=== PATIENT | female | born 1975 | race American Indian/Alaskan Native ===

== ENCOUNTER 2018-01-03 14:49 | Inpatient (IN) | payer MEDICAID ==
[2018-01-03 14:57] VITALS: BMI 40.4
[2018-01-03] MEDS ORDERED: Magnesium Sulfate 2 gm/50 ml 2 GM/50 ML BAG IVPB ONE (15:19)
[2018-01-03] MEDS ORDERED: Sodium Chloride 0.9% 1,000 ML IV STA (15:22)
[2018-01-03] MEDS: Albuterol-Ipratrop 3 mg / 0.5 (3 ml) UD IH SCH ×5 (15:30→18:25)
--- NOTE | 2018-01-03 15:56 | ED PDOC ---
Arrival/HPI - General Historian: Patient - General Chief Complaint: Shortness Of Breath Time Seen by Provider: 01/03/18 14:57 - History of Present Illness Narrative History of Present Illness (Text): 01/03/18 16:15 Patient is a 42-year-old female with past medical history of asthma reports one day history of dyspnea and wheezing. Episode apparently precipitated by cough and cold symptoms, which have been present since last week. Reports (-) fever; ( +) cough; (-) sputum production, (-) chest pain. Patient has previous history of emergency department visits. Patient has previous history of hospital admissions. Patient was never intubated in the past. PMD : [place] (Catie Del Castillo PA-C) Past Medical History - Infectious Disease Hx of Infectious Diseases: None - Reproductive Menopause: No - Cardiac Hx Cardiac Disorders: No - Pulmonary Hx Asthma: Yes - Endocrine/Metabolic Hx Endocrine Disorders: No - Hematological/Oncological Hx Blood Disorders: No - Gastrointestinal Hx Gastrointestinal Disorders: No - Psychiatric Hx Substance Use: No - Anesthesia Hx Anesthesia: No Family/Social History Family/Social History: No Known Family HX Smoking Status: Former Smoker Hx Alcohol Use: No Hx Substance Use: No Allergies/Home Meds Allergies/Adverse Reactions: Allergies No Known Allergies Allergy (Verified 01/03/18 15:11) Home Medications: Home Meds Medication Instructions Recorded Confirmed Albuterol HFA [Ventolin HFA 90 0.09 mg IH QID PRN 01/03/18 01/03/18 mcg/actuation (8 g)] Azithromycin [Zithromax] 250 mg PO DAILY 01/03/18 01/03/18 Budesonide/Formoterol Fumarate 2 aer IH BID 01/03/18 01/03/18 [Symbicort] methylPREDNISolone 4 mg PO 01/03/18 [Methylprednisolone] Review of Systems - Review of Systems Constitutional: absent: Fatigue, Fevers Respiratory: SOB, Cough, Wheezing Cardiovascular: absent: Chest Pain, Palpitations Gastrointestinal: absent: Abdominal Pain, Nausea, Vomiting Genitourinary Female: absent: Dysuria, Frequency Musculoskeletal: absent: Arthralgias, Back Pain, Neck Pain Skin: absent: Rash, Pruritis, Skin Lesions Neurological: absent: Headache, Dizziness Physical Exam Temperature: Afebrile Blood Pressure: Normal Pulse: Regular Respiratory Rate: Normal Appearance: Positive for: Well-Appearing, Non-Toxic, Comfortable Pain Distress: None Mental Status: Positive for: Alert and Oriented X 3 - Systems Exam Head: Present: Atraumatic, Normocephalic Pupils: Present: PERRL Extroacular Muscles: Present: EOMI Conjunctiva: Present: Normal Mouth: Present: Moist Mucous Membranes Neck: Present: Normal Range of Motion Respiratory/Chest: Present: Clear to Auscultation, Good Air Exchange, Respiratory Distress (+mild respiratory distress, patient speaking in short sentences), Wheezes (+b/l expiratory wheezing), Decreased Breath Sounds (+b/l BS mildly decreased). No: Accessory Muscle Use, Rales, Rhonchi Cardiovascular: Present: Regular Rate and Rhythm, Normal S1, S2. No: Murmurs Abdomen: No: Tenderness, Distention, Peritoneal Signs Back: Present: Normal Inspection Upper Extremity: Present: Normal Inspection. No: Cyanosis, Edema Lower Extremity: Present: Normal Inspection. No: Edema Neurological: Present: GCS=15, CN II-XII Intact, Speech Normal, Motor Func Grossly Intact, Normal Sensory Function Skin: Present: Warm, Dry, Normal Color. No: Rashes Psychiatric: Present: Alert, Oriented x 3, Normal Insight, Normal Concentration Vital Signs Temp Pulse Resp BP Pulse Ox 01/03/18 18:00 88 20 104/56 L 96 01/03/18 17:00 92 H 18 119/69 98 01/03/18 15:20 20 96 01/03/18 14:57 98.6 F 90 18 125/74 100 Medical Decision Making ED Course and Treatment: 01/03/18 15:56 Plan : - CXR - Labs - Duonebs x3 - Mg IV 01/03/18 17:35 Labs reviewed : wbc 13.1, rest of the labs wnl. CXR : mild venous congestion, no infiltrates, as read by PA BNP ordered. Lab notified. On reevaluation, patient is resting comfortably in bed with noted improvement of respiratory distress, however patient continues to complain of wheezing. She reports no h/o HTN or CHF. On exam patient still speaking in short sentences, but sounds are mildly decreased with faint bilateral expiratory wheezing and still present. Another DuoNeb 2 ordered for the patient. Diagnostic results discussed with the patient in great detail. Case discussed with hospitalist Dr. Brito, he agrees with plan for observation for the patient. Patient agrees with plan for further observation for status asthmaticus. BNP normal. (Abundio FISCHER,Catie Acuna) - Lab Interpretations Microbiology Results: Microbiology Results 01/04/18 02:20 Blood Blood Culture - Preliminary NO GROWTH AFTER 3 DAYS 01/04/18 02:15 Blood Blood Culture - Preliminary NO GROWTH AFTER 3 DAYS Lab Results: 01/04/18 06:00 01/04/18 06:00 Lab Results 01/04/18 06:00: pCO2 35, pO2 89.0, HCO3 22.7, ABG pH 7.42, ABG Total CO2 23.8, ABG O2 Saturation 98.8 H, ABG O2 Content 15.5, ABG Base Excess -1.4, ABG Hemoglobin 11.4 L, ABG Carboxyhemoglobin 1.6 H, POC ABG HHb (Measured) 1.2, ABG Methemoglobin 1.1, ABG O2 Capacity 15.7 L, Hgb O2 Saturation 96.0, FiO2 21.0 01/04/18 06:00: Sodium 137, Chloride 105, Potassium 4.7, Carbon Dioxide 23, Anion Gap 13, BUN 17, Creatinine 0.8, Est GFR ( Amer) > 60, Est GFR (Non- Af Amer) > 60, Random Glucose 164 H, Calcium 8.9, Phosphorus 3.2, Magnesium 2.4 H, Total Bilirubin 0.2, AST 16, ALT 29, Alkaline Phosphatase 59, Total Protein 7.3, Albumin 3.6, Globulin 3.7, Albumin/Globulin Ratio 1.0 L 01/04/18 06:00: WBC 24.2 H D, RBC 4.63, Hgb 11.6 L, Hct 36.1, MCV 78.0 L, MCH 25.1, MCHC 32.1, RDW 15.1 H, Plt Count 251, MPV 11.3 H 01/04/18 05:30: Hemoglobin A1c 6.3 01/04/18 02:20: Procalcitonin < 0.05 L 01/03/18 15:45: Sodium 140, Chloride 104, Potassium 3.6, Carbon Dioxide 26, Anion Gap 14, BUN 20, Creatinine 1.1, Est GFR ( Amer) > 60, Est GFR (Non- Af Amer) 54, Random Glucose 138 H, Calcium 8.5, Magnesium 2.5 H, Total Bilirubin 0.1 L, AST 28, ALT 36, Alkaline Phosphatase 66, Total Protein 7.3, Albumin 3.9, Globulin 3.5, Albumin/Globulin Ratio 1.1 01/03/18 15:45: pO2 51, VBG pH 7.40, VBG pCO2 43.0, VBG HCO3 26.6, VBG Total CO2 27.9, VBG O2 Sat (Calc) 90.3 H, VBG Base Excess 1.5, VBG Potassium 3.5 L, Sodium 137.0, Chloride 104.0, Glucose 142 H, Lactate 1.2, FiO2 21.0, Venous Blood Potassium 3.5 L 01/03/18 15:45: WBC 13.1 H, RBC 4.86, Hgb 12.1, Hct 38.1, MCV 78.4 L, MCH 24.9 L , MCHC 31.8, RDW 15.2 H, Plt Count 232, MPV 11.2 H, Gran % 64.3, Lymph % (Auto) 31.5, [place] % (Auto) 3.6, Eos % (Auto) 0.5 L, Baso % (Auto) 0.1, Gran # 8.46 H, Lymph # (Auto) 4.1 H, [place] # (Auto) 0.5, Eos # (Auto) 0.1, Baso # (Auto) 0.01 01/03/18 15:17: NT-Pro-B Natriuret Pep 31.4 - RAD Interpretation Radiology Orders: 01/03/18 15:20 CHEST PORTABLE [RAD] Stat - Medication Orders Current Medication Orders: Albuterol/Ipratropium (Duoneb 3 Mg/0.5 Mg (3 Ml) Ud) 3 ml IH [id number] PRN PRN Reason: Shortness of Breath Albuterol/Ipratropium (Duoneb 3 Mg/0.5 Mg (3 Ml) Ud) 3 ml IH [id number] [facility] Last Admin: 01/06/18 19:34 Dose: 3 ml Arformoterol Tartrate (Brovana) 15 mcg IH [id number] [facility] Last Admin: 01/06/18 19:34 Dose: 15 mcg Budesonide (Pulmicort Respules) 0.5 mg IH [id number] [facility] Last Admin: 01/06/18 19:34 Dose: 0.5 mg Enoxaparin Sodium (Lovenox) 40 mg SC DAILY [facility] PRN Reason: Protocol Last Admin: 01/06/18 10:58 Dose: 40 mg Subcutaneous Administrations Document 01/06/18 10:58 RV (Rec: 01/06/18 10:59 RV [id number]) Injection Site MAR Injection Site Left Abdomen Charges for Administration # of Subcutaneous Administrations 1 Guaifenesin (Mucinex La) 600 mg PO BID [facility] Last Admin: 01/06/18 17:16 Dose: 600 mg Methylprednisolone (Solu-Medrol) 30 mg IVP Q12 [facility] Last Admin: 01/06/18 21:51 Dose: 30 mg IVP Administration Document 01/06/18 21:51 RM (Rec: 01/06/18 21:52 RM [id number]) Charges for Administration # of IVP Administrations 1 Pantoprazole Sodium (Protonix Ec Tab) 40 mg PO 0600 [facility] Last Admin: 01/07/18 06:08 Dose: 40 mg Discontinued Medications Albuterol/Ipratropium (Duoneb 3 Mg/0.5 Mg (3 Ml) Ud) 3 ml IH Q15M [facility] Stop: 01/03/18 16:01 Last Admin: 01/03/18 16:05 Dose: 3 ml Albuterol/Ipratropium (Duoneb 3 Mg/0.5 Mg (3 Ml) Ud) 3 ml IH Q15M [facility] Stop: 01/03/18 18:31 Last Admin: 01/03/18 18:25 Dose: 3 ml Magnesium Sulfate (Magnesium Sulfate 2 Gm/50 Ml Water) 2 gm in 50 mls @ 102 mls /hr IVPB ONCE ONE Stop: 01/03/18 15:48 Last Admin: 01/03/18 15:41 Dose: 102 mls/hr eMAR Start Stop Document 01/03/18 15:41 LARRY (Rec: 01/03/18 15:41 LARRY [id number]) Intravenous Solution Start Date 01/03/18 Start Time 15:41 End Date 01/03/18 End time 16:41 Total Infusion Time 60 Sodium Chloride (Sodium Chloride 0.9%) 100 mls @ 500 mls/hr IV .Q12M STA Stop: 01/03/18 15:33 Last Admin: 01/03/18 15:30 Dose: 500 mls/hr eMAR Start Stop Document 01/03/18 15:30 SZMaia (Rec: 01/03/18 16:47 MARCMaia [id number]) Intravenous Solution Start Date 01/03/18 Start Time 15:30 End Date 01/03/18 Azithromycin (Zithromax 500mg In Ns) 500 mg in 250 mls @ 167 mls/hr IVPB DAILY [facility] PRN Reason: Protocol Azithromycin (Zithromax 500mg In Ns) 500 mg in 250 mls @ 167 mls/hr IVPB DAILY [facility] PRN Reason: Protocol Last Admin: 01/06/18 10:58 Dose: 167 mls/hr eMAR Start Stop Document 01/06/18 10:58 RV (Rec: 01/06/18 10:58 RV [id number]) Intravenous Solution Start Date 01/06/18 Start Time 10:58 End Date 01/06/18 End time 11:58 Total Infusion Time 60 Loratadine (Claritin) 10 mg PO ONCE STA Stop: 01/04/18 00:56 Methylprednisolone (Solu-Medrol) 40 mg IVP Q12 [facility] Last Admin: 01/05/18 09:40 Dose: 40 mg IVP Administration Document 01/05/18 09:40 RV (Rec: 01/05/18 09:40 RV [id number]) Charges for Administration # of IVP Administrations 1 - PA / PASTORAL WORKER / Resident Statement MD/DO has reviewed & agrees with the documentation as recorded. Disposition/Present on Arrival - Present on Arrival Any Indicators Present on Arrival: No History of DVT/PE: No History of Uncontrolled Diabetes: No Urinary Catheter: No History of Decub. Ulcer: No History Surgical Site Infection Following: None - Disposition Have Diagnosis and Disposition been Completed?: Yes Disposition Time: 18:30 Patient Plan: Observation (to remote tele) - Disposition Diagnosis: Status asthmaticus Disposition: HOSPITALIZED Patient Problems: Current Active Problems Problem Status Onset Status asthmaticus Acute Condition: FAIR
[2018-01-03 16:16] LABS: VENOUS BLOOD GAS BASE EXCESS 1.5 mmol/L (0.0-2.0); VENOUS BLOOD GAS PO2 51 mm/Hg (30-55)
[2018-01-03 16:17] LABS: BASO # 0.01 K/mm3 (0.0-2.0); BASO % 0.1 % (0.0-3.0); EOS # 0.1 (0.0-0.7); EOS % 0.5 % (1.5-5.0); GRAN # 8.46 (1.4-6.5); GRAN % 64.3 % (50.0-68.0); HEMOGLOBIN 12.1 g/dL (12.0-16.0); LYMPH # 4.1 (1.2-3.4); LYMPH % 31.5 % (22.0-35.0); MEAN CELL VOLUME 78.4 fl (80.0-105.0); MEAN CORPUSCULAR HEMOGLOBIN 24.9 pg (25.0-35.0); MEAN CORPUSCULAR HGB CONC 31.8 g/dl (31.0-37.0); MEAN PLATELET VOLUME 11.2 fl (7.0-11.0); MONO # 0.5 (0.1-0.6); MONO % 3.6 % (1.0-6.0); RBC 4.86 10^6/uL (3.5-6.1); RED CELL DISTRIBUTION WIDTH 15.2 % (11.5-14.5); WHITE BLOOD COUNT 13.1 10^3/ul (4.5-11.0)
[2018-01-03 16:27] LABS: ALB/GLOB RATIO 1.1 (1.1-1.8); ALBUMIN 3.9 g/dL (3.0-4.8); ALT/SGPT 36 U/L (7-56); AST/SGOT 28 U/L (14-36); BLOOD UREA NITROGEN 20 mg/dL (7-21); CALCIUM 8.5 mg/dL (8.4-10.5); GFR NON-AFRICAN AMERICAN 54
--- NOTE | 2018-01-03 17:11 | RAD ---
Date of service: 01/03/2018 HISTORY: wheezing COMPARISON: No prior. FINDINGS: LUNGS: Mild pulmonary vascular congestion noted PLEURA: No significant pleural effusion identified, no pneumothorax apparent. CARDIOVASCULAR: Normal. OSSEOUS STRUCTURES: No significant abnormalities. VISUALIZED UPPER ABDOMEN: Normal. OTHER FINDINGS: None. IMPRESSION: Mild pulmonary vascular congestion.
--- NOTE | 2018-01-03 18:30 | CARD ---
APPROVED REPORT Date of service: 01/03/2018 EKG Measurement Heart [id number] <Conclusion> Poor data quality, interpretation may be adversely affected Normal sinus rhythm Nonspecific T wave abnormality Abnormal ECG
[2018-01-03] MEDS ORDERED: Albuterol-Ipratrop 3 mg / 0.5 (3 ml) UD IH PRN (19:39)
--- NOTE | 2018-01-03 20:07 | CP.PCM.HP ---
<Camden Ann - Last Filed: 01/03/18 20:07> History of Present Illness - History of Present Illness History of Present Illness: Camden Ann PGY2 IM H&P Note for Dr. Flores cc: sob and cough x6 days Ms. Herrera is a 42 year old Female with a PMH of asthma and morbid obesity who presented to the ED with shortness of breath and cough x6 days when she went to ED and was prescribed an Advair inhaler that she has not been able to use. As a result, her cough has persisted and sob worsened. She denies fevers/chills, nausea/vomiting/chills, sick contacts, recent travel. She states that she does not have asthma attacks frequently and that her symptoms are mainly associated with the changes in the weather. She does have pleuritic chest pain that's mid-sternal but non-radiating. 12-pt ROS was reviewed and is otherwise unremarkable. PMH: as above PSH: non-contributory Meds: as per MAR, reviewed Allergies: none SHx: +tobacco smoke (3cigs/d for many years), denies EtOH and drug use Present on Admission - Present on Admission Any Indicators Present on Admission: No Review of Systems - Review of Systems All systems: reviewed and no additional remarkable complaints except (as per HPI ) Past Patient History - Infectious Disease Hx of Infectious Diseases: None - Past Medical History & Family History Past Medical History?: Yes - Past Social History Smoking Status: Current Some Days Smoker Alcohol: None Drugs: Denies - CARDIAC Hx Cardiac Disorders: No - PULMONARY Hx Asthma: Yes - NEUROLOGICAL Hx Neurological Disorder: No - HEENT Hx HEENT Problems: No - RENAL Hx Chronic Kidney Disease: No - ENDOCRINE/METABOLIC Hx Endocrine Disorders: No - HEMATOLOGICAL/ONCOLOGICAL Hx Blood Disorders: No - INTEGUMENTARY Hx Dermatological Problems: No - MUSCULOSKELETAL/RHEUMATOLOGICAL Hx Musculoskeletal Disorders: No - GASTROINTESTINAL Hx Gastrointestinal Disorders: No - GENITOURINARY/GYNECOLOGICAL Hx Genitourinary Disorders: No - PSYCHIATRIC Hx Substance Use: No - SURGICAL HISTORY Hx Surgeries: No - ANESTHESIA Hx Anesthesia: No Meds Allergies/Adverse Reactions: Allergies Allergy/AdvReac Type Severity Reaction Status Date / Time No Known Allergies Allergy Verified 01/03/18 15:11 Physical Exam - Constitutional Appears: Well, Non-toxic, No Acute Distress - Head Exam Head Exam: ATRAUMATIC, NORMAL INSPECTION - Eye Exam Eye Exam: EOMI, Normal appearance, PERRL - ENT Exam ENT Exam: Mucous Membranes Dry - Neck Exam Neck exam: Positive for: Normal Inspection. Negative for: Lymphadenopathy - Respiratory Exam Respiratory Exam: Decreased Breath Sounds, Wheezes (mild R>L), NORMAL BREATHING PATTERN. absent: Rales - Cardiovascular Exam Cardiovascular Exam: RRR, +S1, +S2. absent: Systolic Murmur - GI/Abdominal Exam GI & Abdominal Exam: Normal Bowel Sounds, Soft. absent: Distended, Tenderness - Extremities Exam Extremities exam: Positive for: normal inspection. Negative for: pedal edema - Back Exam Back exam: NORMAL INSPECTION - Neurological Exam Neurological exam: Alert, CN II-XII Intact, Oriented x3 - Psychiatric Exam Psychiatric exam: Normal Affect, Normal Mood - Skin Skin Exam: Warm Results - Vital Signs Recent Vital Signs: Last Vital Signs Temp 98.6 F 01/03/18 14:57 Pulse 88 01/03/18 18:00 Resp 20 01/03/18 18:00 BP 104/56 L 01/03/18 18:00 Pulse Ox 96 01/03/18 18:00 - Labs Result Diagrams: 01/03/18 15:45 01/03/18 15:45 Assessment & Plan - Assessment and Plan (Free Text) Assessment: 42 year old Female with a PMH of asthma and morbid obesity who presented to the ED with shortness of breath and cough x6 days, and is found to be wheezing with no signs of infection. Patient has not been using her inhaler due to difficulty operating the inhaler. Plan: 1. Asthma - Duonebs ESTER And PRN - Pulmicort Q12 - Brovana Q12 - Solu-medrol 40q12 - Zithromax started empirically - O2 PRN - monitor O2 sat - patient is stable and in no acute respiratory distress, can monitor on med- surg - CXR showed mild vascular congestion 2. morbid obesity - medicare nurse referral 3. PPX/DIET - PTX for GI ppx - Lovenox for DVT ppx - HHD Case was reviewed and discussed with attending, Dr. Mark Ann PGY2 <Paul Flores - Last Filed: 01/04/18 01:02> Results - Vital Signs Recent Vital Signs: Last Vital Signs Temp 98.4 F 01/03/18 21:30 Pulse 89 01/03/18 21:30 Resp 19 01/03/18 21:30 BP 124/66 01/03/18 21:30 Pulse Ox 98 01/03/18 21:30 - Labs Result Diagrams: 01/03/18 15:45 01/03/18 15:45
[2018-01-03] MEDS: MethylPREDNISolone 40 mg Vial IVP SCH (21:52)
[2018-01-03] MEDS ORDERED: Fluticasone-Salmeterol 250-50mcg Diskus IH SCH (22:00)
[2018-01-04] MEDS: Arformoterol 15 mcg/2 ml Inh Sol IH SCH ×3 (01:19→20:32)
[2018-01-04] MEDS: Budesonide 0.5 mg/2 ml Inhal Susp UD IH SCH ×3 (01:19→20:32)
[2018-01-04] MEDS: Albuterol-Ipratrop 3 mg / 0.5 (3 ml) UD IH SCH ×5 (01:19→20:32)
[2018-01-04] MEDS: Pantoprazole 40 mg EC Tab PO SCH (05:19)
[2018-01-04 06:23] LABS: ARTERIAL BLOOD GAS HCO3 22.7 mmol/L (21-28); ARTERIAL BLOOD GAS HEMOGLOBIN 11.4 g/dL (11.7-17.4); ARTERIAL BLOOD GAS O2 CAPACITY 15.7 mL/dl (16-24); ARTERIAL BLOOD GAS O2 CONTENT 15.5 ML/dl (15-23); ARTERIAL BLOOD GAS O2 SAT 98.8 % (95-98); ARTERIAL BLOOD GAS PCO2 35 mm/Hg (35-45); ARTERIAL BLOOD GAS PH 7.42 (7.35-7.45); ARTERIAL BLOOD GAS TCO2 23.8 mmol.L (22-28)
[2018-01-04 06:35] LABS: HEMOGLOBIN 11.6 g/dL (12.0-16.0); MEAN CORPUSCULAR HEMOGLOBIN 25.1 pg (25.0-35.0); MEAN CORPUSCULAR HGB CONC 32.1 g/dl (31.0-37.0); MEAN PLATELET VOLUME 11.3 fl (7.0-11.0); RBC 4.63 10^6/uL (3.5-6.1); RED CELL DISTRIBUTION WIDTH 15.1 % (11.5-14.5); WHITE BLOOD COUNT 24.2 10^3/ul (4.5-11.0)
[2018-01-04 07:09] LABS: ALBUMIN 3.6 g/dL (3.0-4.8); ALT/SGPT 29 U/L (7-56); AST/SGOT 16 U/L (14-36); BLOOD UREA NITROGEN 17 mg/dL (7-21); CALCIUM 8.9 mg/dL (8.4-10.5); GFR NON-AFRICAN AMERICAN > 60
[2018-01-04] MEDS: Azithromycin 500MG/NS 250ml 500 MG/250 ML BAG IVPB SCH (09:23)
[2018-01-04] MEDS: MethylPREDNISolone 40 mg Vial IVP SCH ×2 (09:24→21:22)
[2018-01-04] MEDS: Enoxaparin 40 mg Syringe SC SCH (09:24)
[2018-01-04] MEDS ORDERED: Azithromycin 500MG/NS 250ml 500 MG/250 ML BAG IVPB SCH (10:00)
--- NOTE | 2018-01-04 18:06 | CP.PCM.PN ---
<Barbara Arndt - Last Filed: 01/04/18 18:02> Subjective - Date & Time of Evaluation Date of Evaluation: 01/04/18 Time of Evaluation: 09:20 - Subjective Subjective: PGY-1 Barbara Arndt D.O. Medicine progress not for Dr. Clarke's service: Patient was seen and examined this morning. No over night events reported. Patient states her SOB is improving. She is comfortable on room air. She is still complaining of a dry cough with associated chest pain. She admits to a 10 pack year history of smoking, but she has not had a cigarette since her respiratory symptoms started one week ago. She intends to quit. Patient does not see a specialist for her asthma. Patient's daughter has asthma as well. 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 She has never been hospitalized or intubated for an asthma exacerbation. Objective - Vital Signs/Intake and Output Vital Signs (last 24 hours): Temp Pulse Resp BP Pulse Ox 98.1 F 63 20 102/52 L 99 01/04/18 08:12 01/04/18 08:12 01/04/18 08:12 01/04/18 08:12 01/04/18 08:12 - Medications Medications: Current Medications Albuterol/Ipratropium (Duoneb 3 Mg/0.5 Mg (3 Ml) Ud) 3 ml IH [id number] PRN PRN Reason: Shortness of Breath Albuterol/Ipratropium (Duoneb 3 Mg/0.5 Mg (3 Ml) Ud) 3 ml IH [id number] [facility] Last Admin: 01/04/18 13:38 Dose: 3 ml Arformoterol Tartrate (Brovana) 15 mcg IH [id number] [facility] Last Admin: 01/04/18 07:36 Dose: 15 mcg Budesonide (Pulmicort Respules) 0.5 mg IH [id number] [facility] Last Admin: 01/04/18 07:36 Dose: 0.5 mg Enoxaparin Sodium (Lovenox) 40 mg SC DAILY [facility] PRN Reason: Protocol Last Admin: 01/04/18 09:24 Dose: 40 mg Azithromycin (Zithromax 500mg In Ns) 500 mg in 250 mls @ 167 mls/hr IVPB DAILY [facility] PRN Reason: Protocol Last Admin: 01/04/18 09:23 Dose: 167 mls/hr Methylprednisolone (Solu-Medrol) 40 mg IVP Q12 [facility] Last Admin: 01/04/18 09:24 Dose: 40 mg Pantoprazole Sodium (Protonix Ec Tab) 40 mg PO 0600 [facility] Last Admin: 01/04/18 05:19 Dose: 40 mg - Constitutional Appears: No Acute Distress - Head Exam Head Exam: ATRAUMATIC, NORMAL INSPECTION, NORMOCEPHALIC - Eye Exam Eye Exam: EOMI, Normal appearance, PERRL - ENT Exam ENT Exam: Mucous Membranes Moist, Normal Exam - Neck Exam Neck Exam: Normal Inspection - Respiratory Exam Respiratory Exam: Decreased Breath Sounds, Wheezes (L>R), NORMAL BREATHING PATTERN - Cardiovascular Exam Cardiovascular Exam: REGULAR RHYTHM, +S1, +S2 - GI/Abdominal Exam GI & Abdominal Exam: Soft, Normal Bowel Sounds - Rectal Exam Rectal Exam: Deferred - Extremities Exam Extremities Exam: Normal Capillary Refill, Normal Inspection. absent: Pedal Edema, Tenderness - Back Exam Back Exam: NORMAL INSPECTION - Neurological Exam Neurological Exam: Alert, Awake, CN II-XII Intact, Oriented x3. absent: Motor Sensory Deficit Neuro motor strength exam: Left Upper Extremity: 5, Right Upper Extremity: 5, Left Lower Extremity: 5, Right Lower Extremity: 5 - Psychiatric Exam Psychiatric exam: Normal Affect, Normal Mood - Skin Skin Exam: Dry, Intact, Normal Color, Warm Assessment and Plan - Assessment and Plan (Free Text) Assessment: Patient is a 42 yo AA female with a history of asthma who presented with dry cough, SOB, and wheezing x1 week. She went to [facility] ED and was discharged with abx, steroids, and inhaler. Despite this, her symptoms continue to worsen. According to patient's history, she has mild intermittent asthma. Plan: Asthma exacerbation, improving- mild intermittent - CXR: Mild pulmonary vascular congestion. - F/u echo - F/u PFT - Procal <0.05 - Supplemental O2 PRN - Duoneb q6hrs ESTER, q4hrs PRN SOB - Azithromycin 500 mg IV daily - Brovana q12hrs - Pulmicort BID - Solu-medrol 40 mg IV q12hrs- taper - Pulmonology consulted (Dr. Lee) Tobacco use disorder - Encouraged cessation IVF: not indicated GI ppx: Protonix 40 mg PO daily VTE ppx: Lovenox 40 mg SC daily, SCDs Diet: heart healthy Code status: full code Case discussed with attending, Dr. Clarke. <Florencia Clarke - Last Filed: 01/05/18 15:47> Objective - Vital Signs/Intake and Output Vital Signs (last 24 hours): Temp Pulse Resp BP Pulse Ox 98.0 F 69 20 106/61 95 01/05/18 06:00 01/05/18 06:00 01/05/18 06:00 01/05/18 06:00 01/05/18 06:00 Intake and Output: 01/05/18 01/05/18 06:59 18:59 Intake Total 100 Balance 100 - Medications Medications: Current Medications Albuterol/Ipratropium (Duoneb 3 Mg/0.5 Mg (3 Ml) Ud) 3 ml IH [id number] PRN PRN Reason: Shortness of Breath Albuterol/Ipratropium (Duoneb 3 Mg/0.5 Mg (3 Ml) Ud) 3 ml IH [id number] [facility] Last Admin: 01/05/18 13:29 Dose: 3 ml Arformoterol Tartrate (Brovana) 15 mcg IH [id number] [facility] Last Admin: 01/05/18 08:07 Dose: 15 mcg Budesonide (Pulmicort Respules) 0.5 mg IH [id number] [facility] Last Admin: 01/05/18 08:07 Dose: 0.5 mg Enoxaparin Sodium (Lovenox) 40 mg SC DAILY [facility] PRN Reason: Protocol Last Admin: 01/05/18 09:40 Dose: 40 mg Azithromycin (Zithromax 500mg In Ns) 500 mg in 250 mls @ 167 mls/hr IVPB DAILY [facility] PRN Reason: Protocol Last Admin: 01/05/18 09:39 Dose: 167 mls/hr Methylprednisolone (Solu-Medrol) 40 mg IVP Q12 [facility] Last Admin: 01/05/18 09:40 Dose: 40 mg Pantoprazole Sodium (Protonix Ec Tab) 40 mg PO 0600 [facility] Last Admin: 01/05/18 05:15 Dose: 40 mg - Labs Labs: 01/05/18 05:40 01/05/18 05:40 Attending/Attestation - Attestation I have personally seen and examined this patient.: Yes I have fully participated in the care of the patient.: Yes I have reviewed all pertinent clinical information, including history, physical exam and plan: Yes Notes (Text): Patient seen and examined by me at 11:15AM on 01/04/18 with resident. Case including HPI, physical exam, and assessment and plan discussed with resident. Agree with above with following additions/corrections. Patient is a 42-year-old female past medical history significant for asthma and morbid obesity that presented to the emergency room with shortness of breath and cough. Patient states she is feeling a little better today. States that shortness of breath is a little better. Cough is a little better. Patient denies any chest pain. No headaches or dizziness. No fevers or chills. No nausea, vomiting, or abdominal pain. No dysuria. Physical exam: General: Awake and alert sitting up in bed in no acute distress HEENT: Normocephalic, atraumatic. Extraocular muscles intact. Pupils equal reactive. No scleral icterus. Oropharynx is pink and moist. No pharyngeal erythema or exudate appreciated. Neck is supple. Cardiovascular: Normal rhythm. Normal S1, S2. No murmurs, rubs, or gallops appreciated Pulmonary: Normal respiratory effort. No rhonchi, rales or wheezing appreciated. Gastrointestinal: Soft, nondistended. Nontender. Positive bowel sounds all 4 quadrants, no guarding. Musculoskeletal: Moves all extremities, no calf tenderness. No edema appreciated. Central nervous system: AAO x 3. CN 2-12 grossly intact. Dermatologic: Skin warm and dry. Assessment and plan: Patient is a 42-year-old female past medical history significant for asthma, tobacco abuse, and morbid obesity that presented to the emergency room with shortness of breath and cough. 1. Asthma/COPD exacerbation. Possible bronchitis. Continue nebulizer treatments. Continue Brovana and Pulmicort. Continue Solu-Medrol. Continue O2 via nasal cannula as needed. Patient counseled on tobacco cessation. Continue with Zithromax. Pulmonary consulted, follow-up recommendations. 2. Leukocytosis. Likely reactive to steroids. She was on steroids prior to coming into the hospital as well. Continue to monitor. 3. Mild vascular congestion noted on chest x-ray. 2-D echo pending. 4. Morbid obesity. Patient counseled on diet and exercise. 5. Tobacco abuse. Patient counseled on cessation. Case was discussed in detail with the patient regarding current diagnosis and treatment plan.
[2018-01-05] MEDS: Albuterol-Ipratrop 3 mg / 0.5 (3 ml) UD IH SCH ×4 (02:05→20:25)
[2018-01-05] MEDS: Pantoprazole 40 mg EC Tab PO SCH (05:15)
[2018-01-05 06:28] LABS: BASO # 0.01 K/mm3 (0.0-2.0); GRAN # 23.61 (1.4-6.5); GRAN % 87.7 % (50.0-68.0); HEMOGLOBIN 11.8 g/dL (12.0-16.0); LYMPH # 2.8 (1.2-3.4); LYMPH % 10.4 % (22.0-35.0); MEAN CELL VOLUME 78.2 fl (80.0-105.0); MEAN CORPUSCULAR HEMOGLOBIN 24.9 pg (25.0-35.0); MEAN CORPUSCULAR HGB CONC 31.9 g/dl (31.0-37.0); MEAN PLATELET VOLUME 11.4 fl (7.0-11.0); MONO # 0.5 (0.1-0.6); MONO % 1.9 % (1.0-6.0); RBC 4.73 10^6/uL (3.5-6.1); RED CELL DISTRIBUTION WIDTH 15.4 % (11.5-14.5)
[2018-01-05 06:35] LABS: WHITE BLOOD COUNT 26.9 10^3/ul (4.5-11.0)
[2018-01-05 06:56] LABS: ALB/GLOB RATIO 1.1 (1.1-1.8); ALBUMIN 3.9 g/dL (3.0-4.8); ALT/SGPT 29 U/L (7-56); AST/SGOT 23 U/L (14-36); BLOOD UREA NITROGEN 16 mg/dL (7-21); CALCIUM 8.7 mg/dL (8.4-10.5); GFR NON-AFRICAN AMERICAN > 60
[2018-01-05] MEDS: Budesonide 0.5 mg/2 ml Inhal Susp UD IH SCH ×2 (08:07→20:25)
[2018-01-05] MEDS: Arformoterol 15 mcg/2 ml Inh Sol IH SCH ×2 (08:07→20:25)
[2018-01-05] MEDS: Azithromycin 500MG/NS 250ml 500 MG/250 ML BAG IVPB SCH (09:39)
[2018-01-05] MEDS: MethylPREDNISolone 40 mg Vial IVP SCH ×2 (09:40→22:04)
[2018-01-05] MEDS: Enoxaparin 40 mg Syringe SC SCH (09:40)
--- NOTE | 2018-01-05 13:06 | CARD ---
APPROVED REPORT Date of service: 01/04/2018 EXAM: Two-dimensional and M-mode echocardiogram with Doppler and color Doppler. INDICATION Dyspnea 2D DIMENSIONS Left Atrium (2D)3.8 (1.6-4.0cm)IVSd1.2 (0.7-1.1cm) LVDd4.9 (3.9-5.9cm)PWd1.2 (0.7-1.1cm) LVDs3.1 (2.5-4.0cm)FS (%) 36.5 % LVEF (%)66.2 (>50%) M-Mode DIMENSIONS Aortic Root2.90 (2.2-3.7cm)Aortic Cusp Exc.1.80 (1.5-2.0cm) Aortic Valve AoV Peak Mtgwsxub543.0cm/Rick Peak GR.10mmHg Mitral Valve MV E Wjjacbyj68.4cm/sMV A Kekmvysq58.5cm/sE/A ratio1.1 TDI Lateral E' Peak V10.10cm/sMedial E' Peak V7.80cm/sE/Lateral E'8.2 E/Medial E'10.6 Pulmonary Valve PV Peak Bngrbhtk93.5cm/sPV Peak Grad.3mmHg Tricuspid Valve TR Peak Vghwhner113vt/sRAP [id number] Peak Gr.24mmHg [id number] LEFT VENTRICLE The left ventricle is normal size. There is borderline to mild concentric left ventricular hypertrophy. LV Systolic Function Normal. LV Ej.Fr: 66%. RIGHT VENTRICLE The right ventricle is normal size. The right ventricular systolic function is normal. ATRIA The left atrium size is normal. The right atrium size is normal. AORTIC VALVE The aortic valve is normal in structure. MITRAL VALVE The mitral valve is normal in structure. TRICUSPID VALVE The tricuspid valve is normal in structure. There is trace tricuspid regurgitation. RVSP 34mm Hg. PERICARDIAL EFFUSION There is no pericardial effusion. <Conclusion> The left ventricle is normal size. There is borderline to mild concentric left ventricular hypertrophy. LV Systolic Function Normal. LV Ej.Fr: 66%. The right ventricle is normal size. The right ventricular systolic function is normal. The left atrium size is normal. The right atrium size is normal. The aortic valve is normal in structure. The mitral valve is normal in structure. The tricuspid valve is normal in structure. There is trace tricuspid regurgitation. RVSP 34mm Hg. There is no pericardial effusion.
--- NOTE | 2018-01-05 13:37 | CP.PCM.PN ---
<Barbara Arndt - Last Filed: 01/05/18 21:09> Subjective - Date & Time of Evaluation Date of Evaluation: 01/05/18 Time of Evaluation: 07:35 - Subjective Subjective: PGY-1 Barbara Arndt D.O. Medicine progress not for Dr. Clarke's service: Patient was seen and examined this morning. No over night events reported. Patient states her SOB and cough improving. She is comfortable on room air. She is complaining of generalized weakness. She would like help learning how to use her inhaler. She denies chest plain. She is eating and sleeping well. Objective - Vital Signs/Intake and Output Vital Signs (last 24 hours): Temp Pulse Resp BP Pulse Ox 98.0 F 69 20 106/61 95 01/05/18 06:00 01/05/18 06:00 01/05/18 06:00 01/05/18 06:00 01/05/18 06:00 Intake and Output: 01/05/18 01/05/18 06:59 18:59 Intake Total 100 Balance 100 - Medications Medications: Current Medications Albuterol/Ipratropium (Duoneb 3 Mg/0.5 Mg (3 Ml) Ud) 3 ml IH [id number] PRN PRN Reason: Shortness of Breath Albuterol/Ipratropium (Duoneb 3 Mg/0.5 Mg (3 Ml) Ud) 3 ml IH [id number] [facility] Last Admin: 01/05/18 13:29 Dose: 3 ml Arformoterol Tartrate (Brovana) 15 mcg IH [id number] [facility] Last Admin: 01/05/18 08:07 Dose: 15 mcg Budesonide (Pulmicort Respules) 0.5 mg IH [id number] [facility] Last Admin: 01/05/18 08:07 Dose: 0.5 mg Enoxaparin Sodium (Lovenox) 40 mg SC DAILY [facility] PRN Reason: Protocol Last Admin: 01/05/18 09:40 Dose: 40 mg Azithromycin (Zithromax 500mg In Ns) 500 mg in 250 mls @ 167 mls/hr IVPB DAILY [facility] PRN Reason: Protocol Last Admin: 01/05/18 09:39 Dose: 167 mls/hr Methylprednisolone (Solu-Medrol) 40 mg IVP Q12 [facility] Last Admin: 01/05/18 09:40 Dose: 40 mg Pantoprazole Sodium (Protonix Ec Tab) 40 mg PO 0600 [facility] Last Admin: 01/05/18 05:15 Dose: 40 mg - Labs Labs: 01/05/18 05:40 01/05/18 05:40 - Constitutional Appears: Non-toxic, No Acute Distress - Head Exam Head Exam: ATRAUMATIC, NORMAL INSPECTION, NORMOCEPHALIC - Eye Exam Eye Exam: EOMI, Normal appearance, PERRL - ENT Exam ENT Exam: Mucous Membranes Moist, Normal Exam - Neck Exam Neck Exam: Normal Inspection - Respiratory Exam Respiratory Exam: Decreased Breath Sounds, NORMAL BREATHING PATTERN. absent: Wheezes - Cardiovascular Exam Cardiovascular Exam: REGULAR RHYTHM, +S1, +S2 - GI/Abdominal Exam GI & Abdominal Exam: Soft. absent: Tenderness Additional comments: obese - Rectal Exam Rectal Exam: Deferred - Extremities Exam Extremities Exam: Normal Inspection, Pedal Edema (1+ b/l) - Back Exam Back Exam: NORMAL INSPECTION. absent: tenderness - Neurological Exam Neurological Exam: Alert, Awake, CN II-XII Intact, Oriented x3 Neuro motor strength exam: Left Upper Extremity: 5, Right Upper Extremity: 5, Left Lower Extremity: 5, Right Lower Extremity: 5 - Psychiatric Exam Psychiatric exam: Normal Affect, Normal Mood - Skin Skin Exam: Dry, Intact, Normal Color, Warm Assessment and Plan - Assessment and Plan (Free Text) Assessment: Patient is a 42 yo AA female with a history of asthma who presented with dry cough, SOB, and wheezing x1 week. She went to [facility] and was discharged with abx, steroids, and inhaler. Despite this, her symptoms continue to worsen. According to patient's history, she has mild intermittent asthma. Plan: Asthma exacerbation, improving- mild intermittent, showed patient how to utilizes inhalers properly - CXR: Mild pulmonary vascular congestion. - Echo: EF 66%, mild LVH, trace TR - F/u PFT - Procal <0.05 - Supplemental O2 PRN - Duoneb q6hrs ESTER, q4hrs PRN SOB - Azithromycin 500 mg IV daily - Brovana q12hrs - Pulmicort BID - Solu-medrol 30 mg IV q12hrs- taper - Pulmonology consulted (Dr. Lee) Leukocytosis, worsening (13.1->26.9)- suspect due to steroids, no evidence of PNA or other infection - Afebrile - Monitor CBC Tobacco use disorder - Encouraged cessation IVF: not indicated GI ppx: Protonix 40 mg PO daily VTE ppx: Lovenox 40 mg SC daily, SCDs Diet: heart healthy Code status: full code Case discussed with attending, Dr. Clarke. <Florencia Clarke - Last Filed: 01/07/18 08:14> Objective - Vital Signs/Intake and Output Vital Signs (last 24 hours): Temp Pulse Resp BP Pulse Ox 98.1 F 64 19 116/65 98 01/07/18 08:11 01/07/18 08:11 01/07/18 08:11 01/07/18 08:11 01/07/18 08:11 Intake and Output: 01/07/18 01/07/18 06:59 18:59 Intake Total 480 Balance 480 - Medications Medications: Current Medications Albuterol/Ipratropium (Duoneb 3 Mg/0.5 Mg (3 Ml) Ud) 3 ml IH [id number] PRN PRN Reason: Shortness of Breath Albuterol/Ipratropium (Duoneb 3 Mg/0.5 Mg (3 Ml) Ud) 3 ml IH [id number] [facility] Last Admin: 01/07/18 07:53 Dose: 3 ml Arformoterol Tartrate (Brovana) 15 mcg IH [id number] [facility] Last Admin: 01/07/18 07:53 Dose: 15 mcg Budesonide (Pulmicort Respules) 0.5 mg IH [id number] [facility] Last Admin: 01/07/18 07:54 Dose: 0.5 mg Enoxaparin Sodium (Lovenox) 40 mg SC DAILY [facility] PRN Reason: Protocol Last Admin: 01/06/18 10:58 Dose: 40 mg Guaifenesin (Mucinex La) 600 mg PO BID [facility] Last Admin: 01/06/18 17:16 Dose: 600 mg Methylprednisolone (Solu-Medrol) 30 mg IVP Q12 [facility] Last Admin: 01/06/18 21:51 Dose: 30 mg Pantoprazole Sodium (Protonix Ec Tab) 40 mg PO 0600 [facility] Last Admin: 01/07/18 06:08 Dose: 40 mg - Labs Labs: 01/07/18 06:20 01/07/18 06:20 Attending/Attestation - Attestation I have personally seen and examined this patient.: Yes I have fully participated in the care of the patient.: Yes I have reviewed all pertinent clinical information, including history, physical exam and plan: Yes Notes (Text): Patient seen and examined by me at 11:50AM on 01/05/18 with resident. Case including HPI, physical exam, and assessment and plan discussed with resident. Agree with above with following additions/corrections. Patient is a 42-year-old female past medical history significant for asthma and morbid obesity that presented to the emergency room with shortness of breath and cough. Patient states she is feeling better. Still with some shortness of breath and wheezing. Still wtih dry cough. Patient denies any chest pain. No headaches or dizziness. No fevers or chills. No nausea, vomiting, or abdominal pain. No dysuria. Physical exam: General: Awake and alert sitting up in bed in no acute distress HEENT: Normocephalic, atraumatic. Extraocular muscles intact. Pupils equal reactive. No scleral icterus. Oropharynx is pink and moist. No pharyngeal erythema or exudate appreciated. Neck is supple. Cardiovascular: Normal rhythm. Normal S1, S2. No murmurs, rubs, or gallops appreciated Pulmonary: Normal respiratory effort. Decreased breath sounds throughout. Mild expiratory wheezing throughout. No rhonchi or rales appreciated. Gastrointestinal: Soft, nondistended. Nontender. Positive bowel sounds all 4 quadrants, no guarding. Musculoskeletal: Moves all extremities, no calf tenderness. No edema appreciated. Central nervous system: AAO x 3. CN 2-12 grossly intact. Dermatologic: Skin warm and dry. Assessment and plan: Patient is a 42-year-old female past medical history significant for asthma, tobacco abuse, and morbid obesity that presented to the emergency room with shortness of breath and cough. 1. Asthma/COPD exacerbation. Possible bronchitis. Improving. Continue nebulizer treatments. Continue Brovana and Pulmicort. Continue Solu-Medrol, taper steroids. Continue O2 via nasal cannula as needed. Patient counseled on tobacco cessation. Continue with Zithromax. Pulmonary consulted, recommendations appreciated. 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 2. Leukocytosis. Likely reactive to steroids. She was on steroids prior to coming into the hospital as well. Continue to monitor. 3. Mild vascular congestion noted on chest x-ray. 2-D echo per chemical lab supervisor shows left ventricle is normal size, borderline to mild concentric left ventricular hypertrophy, left ventricular systolic function normal, ejection fraction 66%, right ventricular systolic function is normal (please see offical read for full details). 4. Morbid obesity. Patient counseled on diet and exercise. 5. Tobacco abuse. Patient counseled on cessation. Case was discussed in detail with the patient regarding current diagnosis and treatment plan.
--- NOTE | 2018-01-05 22:52 | CON ---
DATE: 01/05/2018 HISTORY OF PRESENT ILLNESS: This is a 42-year-old lady with history of asthma for about 10 years, which, however, appears to be mild intermittent and who has never been in the hospital for asthma or intubated for asthma in the past. She is not on any maintenance inhalers and use albuterol inhalers p.r.n. most of the time. She reports that up until November, she did not really have to use any relieve inhalers as she did not have any wheezing, coughing or shortness of breath. She reports that her symptoms and signs are slightly flare during the springtime, but not enough to send her to the hospital. About two days ago, the patient noticed increased wheezing, runny nose, cough nonproductive and went to her doctor who prescribed her oral steroids and Advair. Her symptoms, however, progressed despite using those and she was referred to hospital for further management and monitoring. No nausea, no vomiting, no diarrhea, no constipation. No chest pain. PAST MEDICAL HISTORY: Asthma, morbid obesity. ALLERGIES: NKDA. FAMILY HISTORY: Noncontributory. SOCIAL HISTORY: No alcohol or illicit drug abuse. No tobacco smoking. REVIEW OF SYSTEMS: Review of 12-organ systems other than mentioned in history present illness is negative. MEDICATIONS AT HOME: Albuterol, Symbicort, azithromycin, Solu-Medrol 40 mg p.o. daily. PHYSICAL EXAMINATION VITAL SIGNS: Temperature 98, heart rate 69, blood pressure 106/61, respiratory rate 20, oxygen saturation 95% on two liters nasal cannula. HEENT: Head and neck atraumatic. LUNGS: Clear to auscultation bilaterally. HEART: Regular rate and rhythm. S1 and S2 normal. ABDOMEN: Soft, nontender and nondistended. MUSCULOSKELETAL: No C/C/E. NEUROLOGIC: The patient moves all extremities spontaneously. SKIN: Moist. PSYCHIATRIC: The patient is alert, awake and oriented x3. LABORATORY DATA: WBC 26.9, hemoglobin 11.8, platelet count 280. Sodium 137, potassium 4.5, chloride 102, carbon dioxide 25, BUN 16, creatinine 0.8, glucose 172. ProBNP 46.3, procalcitonin less than 0.05. AST 23, ALT 29, total bilirubin 0.2. ABG showed 7.42/35/89 on 21% FiO2 (room air). Lactic acid level 1.2. MEDICATIONS: DuoNeb p.r.n. and every 6 hrs on standing basis, Brovana, Pulmicort, Lovenox 40 mg subcutaneously daily, Solu-Medrol 40 mg IV every 12, Protonix, azithromycin. Chest x-ray, no active pulmonary disease. Echocardiogram did not reveal any significant left ventricular or right ventricular abnormalities preliminarily; however, official report is pending. ASSESSMENT AND PLAN: This is a 42-year-old lady who presented with asthma exacerbation. I agree with bronchodilators, inhaled corticosteroids/long acting beta agonist, steroid taper. Using macrolides antibiotics a little bit controversial in the management of asthma exacerbation. Azithromycin against placebo in exacerbations of asthma(PRINCESS) study published in 2016 did not find any benefit in using macrolides in patients with asthma exacerbation. Prior to that study, some data suggested that macrolides improved some outcomes in AAE. The difference between those two studies was that in PRINCESS trial, only 5% of patients were found to be having chlamydia or mycoplasma infection as opposed to tarlithromycin study in which 60% of patients did have chlamydia or mycoplasma infection. So, the question about using the azithromycin in asthma exacerbation remains open to some degree. I would continue target euvolemia, euglycemia, normothermia and oxygen saturation more than 90%. The patient is subjectively doing better. She would definitely need to follow up with outpatient pediatric hospitalist within seven days of discharge to adjust her anti-asthma medication/inhalers. Daniel Lee MD MTDDeonna
[2018-01-06] MEDS: Albuterol-Ipratrop 3 mg / 0.5 (3 ml) UD IH SCH ×3 (01:28→19:34)
[2018-01-06] MEDS: Pantoprazole 40 mg EC Tab PO SCH (06:15)
[2018-01-06 06:33] LABS: BASO # 0.01 K/mm3 (0.0-2.0); GRAN # 19.11 (1.4-6.5); GRAN % 83.2 % (50.0-68.0); HEMOGLOBIN 11.7 g/dL (12.0-16.0); LYMPH # 3.3 (1.2-3.4); LYMPH % 14.3 % (22.0-35.0); MEAN CELL VOLUME 78.3 fl (80.0-105.0); MEAN CORPUSCULAR HEMOGLOBIN 24.8 pg (25.0-35.0); MEAN CORPUSCULAR HGB CONC 31.7 g/dl (31.0-37.0); MEAN PLATELET VOLUME 10.7 fl (7.0-11.0); MONO # 0.6 (0.1-0.6); MONO % 2.5 % (1.0-6.0); RBC 4.71 10^6/uL (3.5-6.1); RED CELL DISTRIBUTION WIDTH 15.6 % (11.5-14.5)
[2018-01-06 06:53] LABS: ALB/GLOB RATIO 1.1 (1.1-1.8); ALBUMIN 3.9 g/dL (3.0-4.8); ALT/SGPT 27 U/L (7-56); AST/SGOT 21 U/L (14-36); BLOOD UREA NITROGEN 17 mg/dL (7-21); GFR NON-AFRICAN AMERICAN > 60
[2018-01-06] MEDS: Arformoterol 15 mcg/2 ml Inh Sol IH SCH ×2 (07:55→19:34)
[2018-01-06] MEDS: Budesonide 0.5 mg/2 ml Inhal Susp UD IH SCH ×2 (07:55→19:34)
[2018-01-06] MEDS: Enoxaparin 40 mg Syringe SC SCH (10:58)
[2018-01-06] MEDS: Azithromycin 500MG/NS 250ml 500 MG/250 ML BAG IVPB SCH (10:58)
[2018-01-06] MEDS: MethylPREDNISolone 40 mg Vial IVP SCH ×2 (10:59→21:51)
[2018-01-06] MEDS: guaiFENesin 600 mg ER Tab PO SCH ×2 (12:00→17:16)
--- NOTE | 2018-01-06 15:00 | CP.PCM.PN ---
<Barbara Arndt - Last Filed: 01/06/18 17:56> Subjective - Date & Time of Evaluation Date of Evaluation: 01/06/18 Time of Evaluation: 09:20 - Subjective Subjective: PGY-1 Barbara Arndt D.O. Medicine progress not for Dr. Clarke's service: Patient was seen and examined this morning. No over night events reported. She states her SOB and cough improve following nebulizer treatments; however, her symptoms worsen and wheezing recurs a few hours later. She denies fevers and chills. She is not requiring supplemental O2. She now feels comfortable using an inhaler. Objective - Vital Signs/Intake and Output Vital Signs (last 24 hours): Temp Pulse Resp BP Pulse Ox 98.2 F 75 20 111/66 98 01/06/18 08:18 01/06/18 08:18 01/06/18 08:18 01/06/18 08:18 01/06/18 08:18 Intake and Output: 01/06/18 01/06/18 06:59 18:59 Intake Total 180 Balance 180 - Medications Medications: Current Medications Albuterol/Ipratropium (Duoneb 3 Mg/0.5 Mg (3 Ml) Ud) 3 ml IH [id number] PRN PRN Reason: Shortness of Breath Albuterol/Ipratropium (Duoneb 3 Mg/0.5 Mg (3 Ml) Ud) 3 ml IH [id number] [facility] Last Admin: 01/06/18 11:23 Dose: 3 ml Arformoterol Tartrate (Brovana) 15 mcg IH [id number] [facility] Last Admin: 01/06/18 07:55 Dose: 15 mcg Budesonide (Pulmicort Respules) 0.5 mg IH [id number] [facility] Last Admin: 01/06/18 07:55 Dose: 0.5 mg Enoxaparin Sodium (Lovenox) 40 mg SC DAILY [facility] PRN Reason: Protocol Last Admin: 01/06/18 10:58 Dose: 40 mg Guaifenesin (Mucinex La) 600 mg PO BID [facility] Last Admin: 01/06/18 12:00 Dose: 600 mg Azithromycin (Zithromax 500mg In Ns) 500 mg in 250 mls @ 167 mls/hr IVPB DAILY [facility] PRN Reason: Protocol Last Admin: 01/06/18 10:58 Dose: 167 mls/hr Methylprednisolone (Solu-Medrol) 30 mg IVP Q12 [facility] Last Admin: 01/06/18 10:59 Dose: 30 mg Pantoprazole Sodium (Protonix Ec Tab) 40 mg PO 0600 [facility] Last Admin: 01/06/18 06:15 Dose: 40 mg - Labs Labs: 01/06/18 06:00 01/06/18 06:00 - Constitutional Appears: Non-toxic, No Acute Distress - Head Exam Head Exam: ATRAUMATIC, NORMAL INSPECTION, NORMOCEPHALIC - Eye Exam Eye Exam: EOMI, Normal appearance, PERRL - ENT Exam ENT Exam: Mucous Membranes Moist, Normal Exam - Neck Exam Neck Exam: Normal Inspection - Respiratory Exam Respiratory Exam: Wheezes, NORMAL BREATHING PATTERN - Cardiovascular Exam Cardiovascular Exam: REGULAR RHYTHM, +S1, +S2 - GI/Abdominal Exam GI & Abdominal Exam: Soft, Normal Bowel Sounds - Rectal Exam Rectal Exam: Deferred - Extremities Exam Extremities Exam: Pedal Edema (b/l 2+) - Back Exam Back Exam: NORMAL INSPECTION - Neurological Exam Neurological Exam: Alert, Awake, CN II-XII Intact, Oriented x3 Neuro motor strength exam: Left Upper Extremity: 5, Right Upper Extremity: 5, Left Lower Extremity: 5, Right Lower Extremity: 5 - Psychiatric Exam Psychiatric exam: Normal Affect, Normal Mood - Skin Skin Exam: Dry, Intact, Normal Color, Warm Assessment and Plan - Assessment and Plan (Free Text) Assessment: Patient is a 42 yo AA female with a history of asthma who presented with dry cough, SOB, and wheezing x1 week. She went to [facility] and was discharged with abx, steroids, and inhaler. Despite this, her symptoms continue to worsen. According to patient's history, she has mild intermittent asthma. Plan: Asthma exacerbation, improving- mild intermittent, showed patient how to utilizes inhalers properly - CXR: Mild pulmonary vascular congestion. - Echo: EF 66%, mild LVH, trace TR - F/u PFT - Procal <0.05 - Blood Cx: no growth >48hrs - Supplemental O2 PRN - Duoneb q6hrs ESTER, q4hrs PRN SOB - Brovana q12hrs - Pulmicort BID - Mucinex 600 mg PO BID - Solu-medrol 30 mg IV q12hrs- taper - PT - Pulmonology consulted (Dr. Lee)- Azithromycin not indicated, f/u with 7 days upon discharge Leukocytosis, stable (23)- suspect due to steroids, no evidence of PNA or other infection - Afebrile - Monitor CBC Tobacco use disorder - Encouraged cessation IVF: not indicated GI ppx: Protonix 40 mg PO daily VTE ppx: Lovenox 40 mg SC daily, SCDs Diet: heart healthy Code status: full code Case discussed with attending, Dr. Clarke. <Florencia Clarke R - Last Filed: 01/07/18 17:58> Objective - Vital Signs/Intake and Output Vital Signs (last 24 hours): Temp Pulse Resp BP Pulse Ox 98.1 F 64 19 116/65 98 01/07/18 08:11 01/07/18 08:11 01/07/18 08:11 01/07/18 08:11 01/07/18 08:11 Intake and Output: 01/07/18 01/07/18 06:59 18:59 Intake Total 480 Balance 480 - Labs Labs: 01/07/18 06:20 01/07/18 06:20 Attending/Attestation - Attestation I have personally seen and examined this patient.: Yes I have fully participated in the care of the patient.: Yes I have reviewed all pertinent clinical information, including history, physical exam and plan: Yes Notes (Text): Patient seen and examined by me at 11:45AM on 01/06/18 with resident. Case including HPI, physical exam, and assessment and plan discussed with resident. Agree with above with following additions/corrections. Patient is a 42-year-old female past medical history significant for asthma and morbid obesity that presented to the emergency room with shortness of breath and cough. Patient states she is feeling ok. States she is feeling short of breath again today and coughing. Patient denies any chest pain. No headaches or dizziness. No fevers or chills. No nausea, vomiting, or abdominal pain. No dysuria. No diarrhea or constipation. Physical exam: General: Awake and alert sitting up in bed in no acute distress HEENT: Normocephalic, atraumatic. Extraocular muscles intact. Pupils equal reactive. No scleral icterus. Oropharynx is pink and moist. No pharyngeal erythema or exudate appreciated. Neck is supple. Cardiovascular: Normal rhythm. Normal S1, S2. No murmurs, rubs, or gallops appreciated Pulmonary: Normal respiratory effort. Decreased breath sounds throughout. Mild expiratory wheezing throughout. No rhonchi or rales appreciated. Gastrointestinal: Soft, nondistended. Nontender. Positive bowel sounds all 4 quadrants, no guarding. Musculoskeletal: Moves all extremities, no calf tenderness. No edema appreciated. Central nervous system: AAO x 3. CN 2-12 grossly intact. Dermatologic: Skin warm and dry. Assessment and plan: Patient is a 42-year-old female past medical history significant for asthma, tobacco abuse, and morbid obesity that presented to the emergency room with shortness of breath and cough. 1. Asthma/COPD exacerbation. Possible bronchitis. Improving. Continue nebulizer treatments. Continue Brovana and Pulmicort. Continue Solu-Medrol, taper steroids. Will start on Mucinex. Continue O2 via nasal cannula as needed. Patient counseled on tobacco cessation. Continue with Zithromax. Pulmonary consulted, recommendations appreciated. 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 2. Leukocytosis. Likely reactive to steroids. She was on steroids prior to coming into the hospital as well. Continue to monitor. 3. Mild vascular congestion noted on chest x-ray. 2-D echo per watch crystal cutter shows left ventricle is normal size, borderline to mild concentric left ventricular hypertrophy, left ventricular systolic function normal, ejection fraction 66%, right ventricular systolic function is normal (please see official read for full details). 4. Morbid obesity. Patient counseled on diet and exercise. 5. Tobacco abuse. Patient counseled on cessation. Case was discussed in detail with the patient regarding current diagnosis and treatment plan.
--- NOTE | 2018-01-06 16:43 | CP.PCM.PN ---
Subjective - Date & Time of Evaluation Date of Evaluation: 01/06/18 Time of Evaluation: 16:40 - Subjective Subjective: Patient seen and examined at bedside, reports to be feeling better, reports SOB is significantly improved. Objective - Vital Signs/Intake and Output Vital Signs (last 24 hours): Temp Pulse Resp BP Pulse Ox 98.2 F 75 20 111/66 98 01/06/18 08:18 01/06/18 08:18 01/06/18 08:18 01/06/18 08:18 01/06/18 08:18 Intake and Output: 01/06/18 01/06/18 06:59 18:59 Intake Total 180 Balance 180 - Medications Medications: Current Medications Albuterol/Ipratropium (Duoneb 3 Mg/0.5 Mg (3 Ml) Ud) 3 ml IH [id number] PRN PRN Reason: Shortness of Breath Albuterol/Ipratropium (Duoneb 3 Mg/0.5 Mg (3 Ml) Ud) 3 ml IH [id number] [facility] Last Admin: 01/06/18 11:23 Dose: 3 ml Arformoterol Tartrate (Brovana) 15 mcg IH [id number] [facility] Last Admin: 01/06/18 07:55 Dose: 15 mcg Budesonide (Pulmicort Respules) 0.5 mg IH [id number] [facility] Last Admin: 01/06/18 07:55 Dose: 0.5 mg Enoxaparin Sodium (Lovenox) 40 mg SC DAILY [facility] PRN Reason: Protocol Last Admin: 01/06/18 10:58 Dose: 40 mg Guaifenesin (Mucinex La) 600 mg PO BID [facility] Last Admin: 01/06/18 12:00 Dose: 600 mg Azithromycin (Zithromax 500mg In Ns) 500 mg in 250 mls @ 167 mls/hr IVPB DAILY [facility] PRN Reason: Protocol Last Admin: 01/06/18 10:58 Dose: 167 mls/hr Methylprednisolone (Solu-Medrol) 30 mg IVP Q12 [facility] Last Admin: 01/06/18 10:59 Dose: 30 mg Pantoprazole Sodium (Protonix Ec Tab) 40 mg PO 0600 [facility] Last Admin: 01/06/18 06:15 Dose: 40 mg - Labs Labs: 01/06/18 06:00 01/06/18 06:00 - Constitutional Appears: Non-toxic, No Acute Distress - Head Exam Head Exam: NORMAL INSPECTION - Eye Exam Eye Exam: Normal appearance - ENT Exam ENT Exam: Mucous Membranes Moist - Neck Exam Neck Exam: Full ROM - Respiratory Exam Respiratory Exam: Clear to Ausculation Bilateral, NORMAL BREATHING PATTERN - Cardiovascular Exam Cardiovascular Exam: REGULAR RHYTHM, +S1, +S2 - GI/Abdominal Exam GI & Abdominal Exam: Soft, Normal Bowel Sounds - Extremities Exam Extremities Exam: Full ROM - Neurological Exam Neurological Exam: Alert, Awake, Oriented x3 - Psychiatric Exam Psychiatric exam: Normal Affect Assessment and Plan - Assessment and Plan (Free Text) Assessment: 42yo female with SOB, Asthma exacerbation SOB Asthma Exacerbation - currently afebrile, BP stable, comfortable in NAD, on room air, on exam CTABL , good air movement, no wheezing - CXR reviewed, no focal consolidation - Cont with Pulmicort, Brovana, Duonebs PRN - Cont with Solumedrol 30mg Q12hr IV for now - Would DC abx, CXR no focal consolidation, Procal negative - will need to follow up with outpatient campaign specialist within 7 days of discharge
[2018-01-06 17:20] VITALS: TEMP 98.1
--- NOTE | 2018-01-07 06:04 | CP.PCM.DIS ---
Provider - Provider Date of Admission: 01/04/18 11:23 Attending physician: Florencia Clarke DO Primary care physician: Mishel Gale MD Consults: pulmonology (Rosa) Time Spent in preparation of Discharge (in minutes): 45 Diagnosis - Discharge Diagnosis (1) Asthma exacerbation Status: Acute Priority: High Hospital Course - Lab Results Lab Results: Micro Results 01/04/18 22:00 Urine,Clean Catch Urine Culture - Final No Growth (<1,000 CFU/ML) Most Recent Lab Values WBC 23.0 10^3/ul (4.5-11.0) H 01/06/18 06:00 RBC 4.71 10^6/uL (3.5-6.1) 01/06/18 06:00 Hgb 11.7 g/dL (12.0-16.0) L 01/06/18 06:00 Hct 36.9 % (36.0-48.0) 01/06/18 06:00 MCV 78.3 fl (80.0-105.0) L 01/06/18 06:00 MCH 24.8 pg (25.0-35.0) L 01/06/18 06:00 MCHC 31.7 g/dl (31.0-37.0) 01/06/18 06:00 RDW 15.6 % (11.5-14.5) H 01/06/18 06:00 Plt Count 263 10^3/uL (120.0-450.0) 01/06/18 06:00 MPV 10.7 fl (7.0-11.0) 01/06/18 06:00 Gran % 83.2 % (50.0-68.0) H 01/06/18 06:00 Lymph % (Auto) 14.3 % (22.0-35.0) L 01/06/18 06:00 Fisher % (Auto) 2.5 % (1.0-6.0) 01/06/18 06:00 Eos % (Auto) 0.0 % (1.5-5.0) L 01/06/18 06:00 Baso % (Auto) 0.0 % (0.0-3.0) 01/06/18 06:00 Gran # 19.11 (1.4-6.5) H 01/06/18 06:00 Lymph # (Auto) 3.3 (1.2-3.4) 01/06/18 06:00 Fisher # (Auto) 0.6 (0.1-0.6) 01/06/18 06:00 Eos # (Auto) 0.0 (0.0-0.7) 01/06/18 06:00 Baso # (Auto) 0.01 K/mm3 (0.0-2.0) 01/06/18 06:00 pCO2 35 mm/Hg (35-45) 01/04/18 06:00 pO2 89.0 mm/Hg (80-100) 01/04/18 06:00 HCO3 22.7 mmol/L (21-28) 01/04/18 06:00 ABG pH 7.42 (7.35-7.45) 01/04/18 06:00 ABG Total CO2 23.8 mmol.L (22-28) 01/04/18 06:00 ABG O2 Saturation 98.8 % (95-98) H 01/04/18 06:00 ABG O2 Content 15.5 ML/dl (15-23) 01/04/18 06:00 ABG Base Excess -1.4 mmol/L (-2.0-3.0) 01/04/18 06:00 ABG Hemoglobin 11.4 g/dL (11.7-17.4) L 01/04/18 06:00 ABG Carboxyhemoglobin 1.6 % (0.5-1.5) H 01/04/18 06:00 POC ABG HHb (Measured) 1.2 % (0-5) 01/04/18 06:00 ABG Methemoglobin 1.1 % (0.0-3.0) 01/04/18 06:00 ABG O2 Capacity 15.7 mL/dl (16-24) L 01/04/18 06:00 VBG pH 7.40 (7.32-7.43) 01/03/18 15:45 VBG pCO2 43.0 (40-60) 01/03/18 15:45 VBG HCO3 26.6 mmol/l (21-28) 01/03/18 15:45 VBG Total CO2 27.9 mmol.L (22-28) 01/03/18 15:45 VBG O2 Sat (Calc) 90.3 % (40-65) H 01/03/18 15:45 VBG Base Excess 1.5 mmol/L (0.0-2.0) 01/03/18 15:45 VBG Potassium 3.5 mmol/L (3.6-5.2) L 01/03/18 15:45 Hgb O2 Saturation 96.0 % (95.0-98.0) 01/04/18 06:00 Sodium 137.0 mmol/L (132-148) 01/03/18 15:45 Chloride 104.0 mmol/L (98-107) 01/03/18 15:45 Glucose 142 mg/dl (65-105) H 01/03/18 15:45 Lactate 1.2 mmol/L (0.7-2.1) 01/03/18 15:45 FiO2 21.0 % 01/04/18 06:00 Sodium 136 mmol/L (132-148) 01/06/18 06:00 Potassium 4.4 mmol/L (3.6-5.0) 01/06/18 06:00 Chloride 101 mmol/L (98-107) 01/06/18 06:00 Carbon Dioxide 25 mmol/L (21-33) 01/06/18 06:00 Anion Gap 14 (10-20) 01/06/18 06:00 BUN 17 mg/dL (7-21) 01/06/18 06:00 Creatinine 0.9 mg/dl (0.7-1.2) 01/06/18 06:00 Est GFR ( Amer) > 60 01/06/18 06:00 Est GFR (Non-Af Amer) > 60 01/06/18 06:00 Random Glucose 151 mg/dL (70-110) H 01/06/18 06:00 Hemoglobin A1c 6.3 % (4.2-6.5) 01/04/18 05:30 Calcium 9.0 mg/dL (8.4-10.5) 01/06/18 06:00 Phosphorus 3.6 mg/dL (2.5-4.5) 01/06/18 06:00 Magnesium 2.1 mg/dL (1.7-2.2) 01/06/18 06:00 Total Bilirubin 0.2 mg/dL (0.2-1.3) 01/06/18 06:00 AST 21 U/L (14-36) 01/06/18 06:00 ALT 27 U/L (7-56) 01/06/18 06:00 Alkaline Phosphatase 65 U/L (38-126) 01/06/18 06:00 NT-Pro-B Natriuret Pep 46.3 pg/mL (0-450) 01/05/18 07:00 Total Protein 7.5 g/dL (5.8-8.3) 01/06/18 06:00 Albumin 3.9 g/dL (3.0-4.8) 01/06/18 06:00 Globulin 3.6 gm/dL 01/06/18 06:00 Albumin/Globulin Ratio 1.1 (1.1-1.8) 01/06/18 06:00 Procalcitonin < 0.05 NG/ML (0.19-0.49) L 01/04/18 02:20 Venous Blood Potassium 3.5 mmol/L (3.6-5.2) L 01/03/18 15:45 - Hospital Course Hospital Course: Upon Admission: 01/03/18 16:15 Patient is a 42-year-old female with past medical history of asthma reports one - day history of dyspnea and wheezing. Episode apparently precipitated by cough and cold symptoms, which have been present since last week. Reports (-) fever; (+) cough; (-) sputum production, (-) chest pain. Patient has previous history of emergency department visits. Patient has previous history of hospital admissions. Patient was never intubated in the past. Chest X-ray: Mild Pulmonary vascular congestion Hospital Stay: 01/04- 01/0701/04/18 Echocardiogram: Left ventricle is normal in size, there is borderline to mile concentric left ventricular hypertrophy. LV systolic function normal. Normal LV ejection fraction: 66%. The right ventricle is normal in size. The right ventricular systolic function is normal, the right and left atrium size is normal. The aortic and mitral valve are normal in structure. Tricuspid valve is normal in structure. There is trace tricuspid regurgitation. RVSP 34 mm Hg. No pericardial effusion. Progress 01/04: Patient states her SOB is improving. She is comfortable on room air. She is still complaining of a dry cough with associated chest pain. 01/05/18 Pulmonology Consult, Dr. Lee: Patient subjectively doing better, will definitely need follow up with outpatient maintainer central office within seven days of discharge to adjust her anti-asthma medications. Progress 01/05: Patient states her SOB and cough improving. She is comfortable on room air. She is complaining of generalized weakness. She would like help learning how to use her inhaler. She denies chest plain. She is eating and sleeping well. 01/07/18- Upon Discharge F/U Outpatient with Pulmonology for Asthma Management Discharge Exam - Head Exam Head Exam: ATRAUMATIC, NORMAL INSPECTION, NORMOCEPHALIC - Eye Exam Eye Exam: EOMI, Normal appearance, PERRL - ENT Exam ENT Exam: Mucous Membranes Moist, Normal Exam - Respiratory Exam Respiratory Exam: Clear to PA & Lateral, NORMAL BREATHING PATTERN - Cardiovascular Exam Cardiovascular Exam: REGULAR RHYTHM, +S1, +S2 - GI/Abdominal Exam GI & Abdominal Exam: Normal Bowel Sounds, Soft, Unremarkable - Rectal Exam Rectal Exam: Deferred - Extremities Exam Extremities exam: full ROM, normal inspection, pedal pulses present - Back Exam Back exam: NORMAL INSPECTION - Neurological Exam Neurological exam: Alert, CN II-XII Intact, Normal Gait, Oriented x3 - Psychiatric Exam Psychiatric exam: Normal Affect, Normal Mood - Skin Skin Exam: Dry, Intact, Normal Color, Warm Discharge Plan - Discharge Medications Prescriptions: Guaifenesin [Mucinex] 600 mg PO BID #10 tab.er.12h - Follow Up Plan Condition: IMPROVED Disposition: HOME/ ROUTINE Patient education suggested?: Yes Instructions: Asthma, Adult (DC) Additional Instructions: You are being discharged from [facility] after being admitted for an asthma exacerbation. Please follow-up with a maintainer central office within 7 days of discharge, you may call your insurance company or primary care doctor for referral. Also, please follow-up with your primary care physician within 3-5 days. You are being discharged with the following prescriptions: Prednisone- 30 mg twice daily for 2 days, then 20 mg twice daily for 2 days, then 10 mg twice daily for 2 days Mucinex 600 mg- take one by mouth twice daily Continue your home Symbicort inhaler as prescribed. If symptoms recur, please present to the nearest emergency department. Referrals: Mishel Gale MD [Primary Care Provider] -
[2018-01-07] MEDS: Pantoprazole 40 mg EC Tab PO SCH (06:08)
[2018-01-07 07:03] LABS: BASO # 0.01 K/mm3 (0.0-2.0); GRAN # 19.88 (1.4-6.5); GRAN % 80.8 % (50.0-68.0); HEMOGLOBIN 12.1 g/dL (12.0-16.0); LYMPH # 3.9 (1.2-3.4); LYMPH % 15.7 % (22.0-35.0); MEAN CELL VOLUME 78.8 fl (80.0-105.0); MEAN CORPUSCULAR HEMOGLOBIN 24.9 pg (25.0-35.0); MEAN CORPUSCULAR HGB CONC 31.7 g/dl (31.0-37.0); MEAN PLATELET VOLUME 11.3 fl (7.0-11.0); MONO # 0.9 (0.1-0.6); MONO % 3.5 % (1.0-6.0); RBC 4.85 10^6/uL (3.5-6.1); RED CELL DISTRIBUTION WIDTH 15.5 % (11.5-14.5); WHITE BLOOD COUNT 24.6 10^3/ul (4.5-11.0)
[2018-01-07 07:27] LABS: BLOOD UREA NITROGEN 20 mg/dL (7-21); GFR NON-AFRICAN AMERICAN > 60
[2018-01-07] MEDS: Arformoterol 15 mcg/2 ml Inh Sol IH SCH (07:53)
[2018-01-07] MEDS: Albuterol-Ipratrop 3 mg / 0.5 (3 ml) UD IH SCH ×2 (07:53→13:18)
[2018-01-07] MEDS: Budesonide 0.5 mg/2 ml Inhal Susp UD IH SCH (07:54)
[2018-01-07 08:12] VITALS: BP 116/65; PULSE 64; RESP 19; O2SAT 98
[2018-01-07] MEDS: MethylPREDNISolone 40 mg Vial IVP SCH (09:04)
[2018-01-07] MEDS: Enoxaparin 40 mg Syringe SC SCH (09:04)
[2018-01-07] MEDS: guaiFENesin 600 mg ER Tab PO SCH (09:04)
== END 2018-01-07 15:50 | disposition home or self-care (01) | DRG 96 ==
LOC: ED 14:49 → ERH 19:39 → 3RNO 20:16 → OBSVTOIN 01-04 11:23
PROVIDERS: ADMIT Internal Medicine; ATTEND Hospitalist
DX: J45.21 Mild intermittent asthma with (acute) exacerbation (principal); J44.1 Chronic obstructive pulmonary disease with (acute) exacerbation; F17.200 Nicotine dependence, unspecified, uncomplicated; I51.7 Cardiomegaly; E66.01 Morbid (severe) obesity due to excess calories; Z68.41 Body mass index [BMI] 40.0-44.9, adult; Z82.5 Family history of asthma and other chronic lower respiratory diseases